=== PATIENT | male | born 2000 | race African-American/Black ===

== ENCOUNTER → 2023-05-16 | Emergency (ER) | payer OTHER, SELFPAY ==
[~2023-05-16] MED LIST: CYCLOBENZAPRINE 10 MG TAB ONE; IBUPROFEN 200 MG TAB PO ONE; IBUPROFEN 400 MG TAB ONE
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
[2023-05-16 04:12] VITALS: BP 138/88; TEMP 98.2; O2SAT 100
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
== END ==
LOC: ER 00:09
DX: M54.2 Cervicalgia (principal); V49.49XA Driver injured in collision with other motor vehicles in traffic accident, initial encounter; F17.210 Nicotine dependence, cigarettes, uncomplicated; Z28.310 Unvaccinated for COVID-19
CPT/HCPCS: 72050; 99284